=== PATIENT | female | born 1990 | race Two or more races ===

== ENCOUNTER → 2017-01-02 | Outpatient (CLI) | payer OTHER ==
[~2017-01-02] MED LIST: IBUP80TA PO; PERCOCET PO; PRENTAB9 PO
[2017-01-02 09:53] LABS: BASO % 0.3 % (0.0-1.0); EOS # 0.1 K/mm3 (0.0-0.50); EOS % 1.3 % (0.0-3.0); LARGE UNSTAINED CELL # 0.1 K/mm3 (0.0-0.4); LARGE UNSTAINED CELL % 2.2 % (0.0-4.0); LYMPH # 1.7 K/mm3 (1.5-6.5); LYMPH % 30.6 % (24.0-44.0); MEAN CORPUSCULAR HEMOGLOBIN 31.6 pg (27.0-33.0); MEAN CORPUSCULAR VOLUME 87.8 fl (80.0-96.0); MONO # 0.3 K/mm3 (0.0-0.8); MONO % 5.5 % (0.0-5.0); NEUTROPHILS # 3.1 K/mm3 (1.8-7.7); NEUTROPHILS % 60.1 % (36.0-66.0); PLATELET COUNT, AUTOMATED 227 k/mm3 (150-450); RED CELL DISTRIBUTION WIDTH 12.4 % (11.5-14.5); WHITE BLOOD COUNT 5.1 K/mm3 (4.0-10.0)
[2017-01-02 10:14] LABS: ALBUMIN 3.6 GM/DL (3.2-5.2); ALBUMIN/GLOBULIN RATIO 1.13 (1.00-1.93); ALKALINE PHOSPHATASE 53 U/L (45-117); ALT/SGPT 27 U/L (12-78); ANION GAP 7 MEQ/L (8-16); AST/SGOT 16 U/L (15-37); BILIRUBIN,TOTAL 0.8 MG/DL (0.2-1.0); BLOOD UREA NITROGEN 13 MG/DL (7-18); CALCIUM LEVEL 8.2 MG/DL (8.5-10.1); CARBON DIOXIDE LEVEL 29 MEQ/L (21-32); CHLORIDE LEVEL 104 MEQ/L (98-107); CHOLESTEROL LEVEL 156 MG/DL (<200); CREATININE FOR GFR 0.76 MG/DL (0.55-1.02); GLOMERULAR FILTRATION RATE > 60.0 (>60); GLUCOSE, FASTING 87 MG/DL (70-105); POTASSIUM SERUM 4.1 MEQ/L (3.5-5.1); SODIUM LEVEL 140 MEQ/L (136-145); TOTAL PROTEIN 6.8 GM/DL (6.4-8.2); TRIGLYCERIDES LEVEL 66 MG/DL (<150)
== END ==
LOC: M LAB 08:49
PROVIDERS: ATTEND Physician Assistant
DX: Z13.0 Encounter for screening for diseases of the blood and blood-forming organs and certain disorders involving the immune mechanism (principal); R53.83 Other fatigue; Z13.220 Encounter for screening for lipoid disorders

== ENCOUNTER → 2017-01-28 | Outpatient (CLI) | payer OTHER ==
[2017-01-28 11:04] LABS: BASO % 0.3 % (0.0-1.0); EOS # 0.1 K/mm3 (0.0-0.50); EOS % 1.3 % (0.0-3.0); LARGE UNSTAINED CELL # 0.1 K/mm3 (0.0-0.4); LARGE UNSTAINED CELL % 2.1 % (0.0-4.0); LYMPH # 1.7 K/mm3 (1.5-6.5); LYMPH % 28.8 % (24.0-44.0); MEAN CORPUSCULAR HEMOGLOBIN 31.3 pg (27.0-33.0); MEAN CORPUSCULAR HGB CONC 35.6 g/dl (32.0-36.5); MEAN CORPUSCULAR VOLUME 87.9 fl (80.0-96.0); MONO # 0.3 K/mm3 (0.0-0.8); MONO % 5.7 % (0.0-5.0); NEUTROPHILS # 3.5 K/mm3 (1.8-7.7); NEUTROPHILS % 61.8 % (36.0-66.0); PLATELET COUNT, AUTOMATED 247 k/mm3 (150-450); RED CELL DISTRIBUTION WIDTH 12.7 % (11.5-14.5); WHITE BLOOD COUNT 5.6 K/mm3 (4.0-10.0)
[2017-01-28 11:32] LABS: ERYTHROCYTE SEDIMENTATION RATE 15 mm/hr (0-20)
[2017-01-28 11:52] LABS: ALBUMIN 3.7 GM/DL (3.2-5.2); ALBUMIN/GLOBULIN RATIO 1.19 (1.00-1.93); ALKALINE PHOSPHATASE 51 U/L (45-117); ALT/SGPT 29 U/L (12-78); ANION GAP 2 MEQ/L (8-16); AST/SGOT 19 U/L (15-37); BILIRUBIN,TOTAL 0.6 MG/DL (0.2-1.0); BLOOD UREA NITROGEN 13 MG/DL (7-18); CALCIUM LEVEL 8.7 MG/DL (8.5-10.1); CARBON DIOXIDE LEVEL 31 MEQ/L (21-32); CHLORIDE LEVEL 106 MEQ/L (98-107); CREATININE FOR GFR 0.73 MG/DL (0.55-1.02); GLOMERULAR FILTRATION RATE > 60.0 (>60); GLUCOSE, FASTING 91 MG/DL (70-105); POTASSIUM SERUM 4.5 MEQ/L (3.5-5.1); SODIUM LEVEL 139 MEQ/L (136-145); TOTAL PROTEIN 6.8 GM/DL (6.4-8.2)
== END ==
LOC: M LAB 10:11
PROVIDERS: ATTEND Psychiatry & Neurology Neurology
DX: R51 Headache (principal)

== ENCOUNTER → 2017-03-18 | Outpatient (CLI) | payer OTHER ==
[~2017-03-18] MED LIST changes: +AZIT-12 PO; +CYAN25TA PO; +MUCI600T37 PO; +MULT1CHW39 PO; +ONDA4TAB6 PO; +TYLE325T5 PO
== END ==
LOC: M WUC 10:53
PROVIDERS: ATTEND Physician Assistant
DX: R94.6 Abnormal results of thyroid function studies (principal)

== ENCOUNTER 2017-05-30 18:51 | Emergency (ER) | payer OTHER ==
[~2017-05-30] VITALS: Ht 172.7 cm; Wt 124.5 kg
[~2017-05-30 18:51] MED LIST changes: -AZIT-12 PO; -CYAN25TA PO; -MUCI600T37 PO; -MULT1CHW39 PO; -ONDA4TAB6 PO; -TYLE325T5 PO
[2017-05-30] MEDS ORDERED: MULT1CHW39 PO (19:01)
[2017-05-30] MEDS ORDERED: CYAN25TA PO (19:01)
[2017-05-30] MEDS ORDERED: TYLE325T5 PO (19:01)
[2017-05-30] MEDS ORDERED: MUCI600T37 PO (19:57)
[2017-05-30] MEDS ORDERED: ONDA4TAB6 PO (19:57)
[2017-05-30] MEDS ORDERED: AZIT-12 PO (19:57)
[2017-05-30] MEDS ORDERED: ONDANSETRON 4 MG ORAL DISINTEGRATING TAB (S0181) PO ONE (20:00)
[2017-05-30] MEDS ORDERED: AZITHROMYCIN 250 MG TAB PO ONE (20:00)
[2017-05-30 20:03] VITALS: BP 134/67
[2017-05-30] MEDS ORDERED: guaiFENesin ER 600 MG TAB PO SCH (21:00)
== END 2017-05-30 20:16 | disposition home or self-care (01) ==
LOC: M ED 18:51
DX: J20.9 Acute bronchitis, unspecified (principal); Q07.00 Arnold-Chiari syndrome without spina bifida or hydrocephalus

== ENCOUNTER → 2017-06-02 | Outpatient (CLI) | payer OTHER ==
[~2017-06-02] MED LIST changes: +AZIT-12 PO; +CALC250T PO; +CYAN25TA PO; +MUCI600T37 PO; +MULT1CHW39 PO; +ONDA4TAB6 PO; +TYLE325T5 PO
[2017-06-02 12:55] LABS: BASO % 0.2 % (0.0-1.0); EOS # 0.1 10^3/uL (0.0-0.50); EOS % 2.6 % (0.0-3.0); LYMPH # 1.7 10^3/uL (1.5-6.5); MEAN CORPUSCULAR HEMOGLOBIN 30.7 pg (27.0-33.0); MEAN CORPUSCULAR HGB CONC 34.2 g/dl (32.0-36.5); MEAN CORPUSCULAR VOLUME 89.8 fl (80.0-96.0); MONO # 0.3 10^3/uL (0.0-0.8); MONO % 7.3 % (0.0-5.0); NEUTROPHILS # 2.5 10^3/uL (1.8-7.7); NEUTROPHILS % 53.9 % (36.0-66.0); PLATELET COUNT, AUTOMATED 186 10^3/uL (150-450); RED CELL DISTRIBUTION WIDTH 14.2 % (11.5-14.5); WHITE BLOOD COUNT 4.7 10^3/uL (4.0-10.0)
[2017-06-02 13:28] LABS: ALBUMIN 3.7 GM/DL (3.2-5.2); ALBUMIN/GLOBULIN RATIO 1.37 (1.00-1.93); ALKALINE PHOSPHATASE 46 U/L (45-117); ALT/SGPT 43 U/L (12-78); ANION GAP 6 MEQ/L (8-16); AST/SGOT 20 U/L (7-37); BILIRUBIN,TOTAL 1.1 MG/DL (0.2-1.0); BLOOD UREA NITROGEN 5 MG/DL (7-18); CALCIUM LEVEL 8.7 MG/DL (8.5-10.1); CARBON DIOXIDE LEVEL 31 MEQ/L (21-32); CHLORIDE LEVEL 108 MEQ/L (98-107); CREATININE FOR GFR 0.63 MG/DL (0.55-1.02); FERRITIN 54 NG/ML (8-252); GLOMERULAR FILTRATION RATE > 60.0 (>60); GLUCOSE, FASTING 87 MG/DL (70-105); MAGNESIUM LEVEL 1.9 MG/DL (1.8-2.4); PHOSPHORUS LEVEL 2.9 MG/DL (2.5-4.9); POTASSIUM SERUM 4.1 MEQ/L (3.5-5.1); SODIUM LEVEL 145 MEQ/L (136-145); TOTAL PROTEIN 6.4 GM/DL (6.4-8.2)
[2017-06-02 13:29] LABS: VITAMIN B12 LEVEL 649 PG/ML (247-911)
[2017-06-02 14:55] LABS: PRETREATED FOLATE FOR RBCFOL 16.2 NG/ML
== END ==
LOC: M LAB 12:19
PROVIDERS: ATTEND Surgery
DX: K91.2 Postsurgical malabsorption, not elsewhere classified (principal); Z98.84 Bariatric surgery status; E55.9 Vitamin D deficiency, unspecified

== ENCOUNTER 2017-06-13 16:38 | Emergency (ER) | payer OTHER ==
[~2017-06-13] VITALS: Ht 172.7 cm; Wt 121.7 kg
[~2017-06-13 16:38] MED LIST changes: -CALC250T PO
[2017-06-13] MEDS ORDERED: CALC250T PO (16:49)
[2017-06-13 18:59] VITALS: BP 120/69
== END 2017-06-13 19:10 | disposition home or self-care (01) ==
LOC: M ED 16:38
DX: J06.9 Acute upper respiratory infection, unspecified (principal); Q07.00 Arnold-Chiari syndrome without spina bifida or hydrocephalus; Z98.0 Intestinal bypass and anastomosis status; Z86.14 Personal history of Methicillin resistant Staphylococcus aureus infection

== ENCOUNTER 2018-01-28 11:31 | Emergency (ER) | payer SELFPAY, OTHER | END 2018-01-28 14:10 | disposition home or self-care (01) | LOC: M ED 11:31 | DX: S40.022A Contusion of left upper arm, initial encounter (principal); Y04.8XXA Assault by other bodily force, initial encounter; Y07.03 Male partner, perpetrator of maltreatment and neglect; Y92.018 Other place in single-family (private) house as the place of occurrence of the external cause; F17.210 Nicotine dependence, cigarettes, uncomplicated | CPT/HCPCS: 99283 ==

== ENCOUNTER → 2018-04-22 | Outpatient (CLI) | payer MEDICAID ==
[2018-04-22 20:49] LABS: BASO % 0.2 % (0.0-1.0); EOS % 0.7 % (0.0-3.0); HEMATOCRIT 37.1 % (36.0-47.0); HEMOGLOBIN 12.5 g/dl (12.0-15.5); IMMATURE GRANULOCYTE % 0.3 % (0-3.0); LYMPH # 1.7 10^3/uL (1.5-6.5); LYMPH % 29.9 % (24.0-44.0); MEAN CORPUSCULAR HGB CONC 33.7 g/dl (32.0-36.5); MEAN CORPUSCULAR VOLUME 92.1 fl (80.0-96.0); MONO # 0.4 10^3/uL (0.0-0.8); MONO % 7.1 % (0.0-5.0); NEUTROPHILS # 3.6 10^3/uL (1.8-7.7); NEUTROPHILS % 61.8 % (36.0-66.0); PLATELET COUNT, AUTOMATED 204 10^3/uL (150-450); RED BLOOD COUNT 4.03 10^6/uL (4.00-5.40); RED CELL DISTRIBUTION WIDTH 12.3 % (11.5-14.5); WHITE BLOOD COUNT 5.8 10^3/uL (4.0-10.0)
[2018-04-22 21:15] LABS: TOTAL 25(OH) VITAMIN D 23.6 NG/ML (30.0-100.0)
[2018-04-22 21:23] LABS: ERYTHROCYTE SEDIMENTATION RATE 12 mm/hr (0-20)
[2018-04-22 21:25] LABS: ALBUMIN 3.9 GM/DL (3.2-5.2); ALBUMIN/GLOBULIN RATIO 1.22 (1.00-1.93); ALKALINE PHOSPHATASE 67 U/L (45-117); ALT/SGPT 21 U/L (12-78); ANION GAP 6 MEQ/L (8-16); AST/SGOT 11 U/L (7-37); BILIRUBIN,TOTAL 0.6 MG/DL (0.2-1.0); BLOOD UREA NITROGEN 14 MG/DL (7-18); CALCIUM LEVEL 8.4 MG/DL (8.5-10.1); CARBON DIOXIDE LEVEL 29 MEQ/L (21-32); CHLORIDE LEVEL 107 MEQ/L (98-107); CREATININE FOR GFR 0.91 MG/DL (0.55-1.30); GLOMERULAR FILTRATION RATE > 60.0 (>60); GLUCOSE, FASTING 79 MG/DL (70-100); POTASSIUM SERUM 4.4 MEQ/L (3.5-5.1); RHEUMATOID FACTOR QUANT < 10.0 IU/ML (<15.0); SODIUM LEVEL 142 MEQ/L (136-145); TOTAL PROTEIN 7.1 GM/DL (6.4-8.2)
[2018-04-24 15:28] LABS: ANTINUCLEAR ANTIBODIES DIRECT Negative (Negative)
== END ==
LOC: M WUC 15:31
DX: R51 Headache (principal)
CPT/HCPCS: 84443

== ENCOUNTER 2019-04-04 08:57 | Emergency (ER) | payer MEDICAID, OTHER, SELFPAY ==
[~2019-04-04] VITALS: Ht 172.7 cm; Wt 107.8 kg
[~2019-04-04 08:57] MED LIST changes: +CALC250T PO; -CYAN25TA PO; -MULT1CHW39 PO; +MULT200T7 PO; +NAPR-837 PO; +OXYC1TAB23 PO; -PERCOCET PO; +VITA250T50 PO
[2019-04-04] MEDS ORDERED: NAPR-837 PO (09:51)
[2019-04-04] MEDS ORDERED: KETOROLAC 60 MG/2 ML VIAL (J1885) IM ONE (10:00)
[2019-04-04 10:28] VITALS: BP 130/60
== END 2019-04-04 10:30 | disposition home or self-care (01) ==
LOC: M ED 08:57
DX: S16.1XXA Strain of muscle, fascia and tendon at neck level, initial encounter (principal); M62.838 Other muscle spasm; X58.XXXA Exposure to other specified factors, initial encounter; Y92.89 Other specified places as the place of occurrence of the external cause; G93.5 Compression of brain; Z79.899 Other long term (current) drug therapy; Z98.84 Bariatric surgery status
CPT/HCPCS: 96372; 99284; J1885

== ENCOUNTER 2019-07-23 10:20 | Emergency (ER) | payer SELFPAY ==
[~2019-07-23] VITALS: Ht 175.3 cm; Wt 97.7 kg
[2019-07-23] MEDS ORDERED: NON-325T5 PO (10:40)
[2019-07-23] MEDS ORDERED: ACETAMINOPHEN 500 MG TAB PO ONE (11:00)
[2019-07-23 11:26] LABS: BASO % 0.2 % (0.0-1.0); EOS % 0.7 % (0.0-3.0); HEMATOCRIT 39.3 % (36.0-47.0); HEMOGLOBIN 13.2 g/dl (12.0-15.5); LYMPH # 1.2 10^3/uL (1.5-5.0); LYMPH % 20.7 % (24.0-44.0); MEAN CORPUSCULAR HEMOGLOBIN 30.3 pg (27.0-33.0); MEAN CORPUSCULAR HGB CONC 33.6 g/dl (32.0-36.5); MEAN CORPUSCULAR VOLUME 90.1 fl (80.0-96.0); MONO # 0.5 10^3/uL (0.0-0.8); NEUTROPHILS # 4.1 10^3/uL (1.5-8.5); NEUTROPHILS % 70.1 % (36.0-66.0); PLATELET COUNT, AUTOMATED 233 10^3/uL (150-450); RED BLOOD COUNT 4.36 10^6/uL (4.00-5.40); WHITE BLOOD COUNT 5.9 10^3/uL (4.0-10.0)
[2019-07-23 11:56] LABS: ALBUMIN 3.5 GM/DL (3.2-5.2); BILIRUBIN,DIRECT 0.2 MG/DL (0.0-0.2); BILIRUBIN,TOTAL 0.7 MG/DL (0.2-1.0); TOTAL PROTEIN 6.9 GM/DL (6.4-8.2)
[2019-07-23 12:35] VITALS: BP 106/55
--- NOTE | 2019-07-23 13:33 | REP ---
CT abdomen and pelvis without IV or oral contrast: History: Left-sided flank pain. No comparison study. CT findings: Preliminary digital personal banking representative radiograph demonstrates a normal bowel gas pattern. The lung bases are clear. The patient is status post gastric bypass surgery. The liver and the spleen are normal in size homogeneous in texture. No adrenal lesion is seen on either side. No abnormalities noted in the pancreas or in the small contracted appearing gallbladder. There is no evidence of hydronephrosis affecting either kidney. No renal calculus is observed. No retroperitoneal mass or adenopathy is seen. No uterine or ovarian abnormality is seen. Urinary bladder is small and contracted but appears intact. A normal appendix is seen in the right lower quadrant. No abdominal wall defect is seen. Bone window settings show no bony destructive lesion. Impression: Patient status post gastric bypass surgery. No urinary tract calculus seen. No hydronephrosis noted. Normal appendix. No acute abdominal or pelvic abnormality. Electronically Signed by Que Cruz MD 07/23/2019 01:24 P
== END 2019-07-23 12:37 | disposition home or self-care (01) ==
LOC: M ED 10:20
DX: S39.012A Strain of muscle, fascia and tendon of lower back, initial encounter (principal); X58.XXXA Exposure to other specified factors, initial encounter; Y92.098 Other place in other non-institutional residence as the place of occurrence of the external cause; G93.5 Compression of brain; N92.6 Irregular menstruation, unspecified; Z98.84 Bariatric surgery status; Z79.899 Other long term (current) drug therapy

== ENCOUNTER 2019-12-21 22:23 | Emergency (ER) | payer OTHER, SELFPAY ==
[~2019-12-21] VITALS: Ht 175.3 cm; Wt 110.0 kg
[~2019-12-21 22:23] MED LIST changes: +ACET-838 PO
[2019-12-21] MEDS ORDERED: NS 1,000 ML IV ONE (23:00)
[2019-12-21 23:18] LABS: BASO % 0.1 % (0.0-1.0); EOS % 0.3 % (0.0-3.0); HEMATOCRIT 36.6 % (36.0-47.0); HEMOGLOBIN 12.7 g/dl (12.0-15.5); LYMPH # 1.4 10^3/uL (1.5-5.0); LYMPH % 13.8 % (24.0-44.0); MEAN CORPUSCULAR HEMOGLOBIN 30.2 pg (27.0-33.0); MEAN CORPUSCULAR HGB CONC 34.7 g/dl (32.0-36.5); MEAN CORPUSCULAR VOLUME 87.1 fl (80.0-96.0); MONO # 0.6 10^3/uL (0.0-0.8); MONO % 5.5 % (0.0-5.0); NEUTROPHILS # 7.9 10^3/uL (1.5-8.5); PLATELET COUNT, AUTOMATED 192 10^3/uL (150-450); WHITE BLOOD COUNT 9.9 10^3/uL (4.0-10.0)
[2019-12-21 23:35] LABS: ALBUMIN 3.8 GM/DL (3.2-5.2); BILIRUBIN,DIRECT 0.2 MG/DL (0.0-0.2); BILIRUBIN,TOTAL 0.9 MG/DL (0.2-1.0); TOTAL PROTEIN 7.2 GM/DL (6.4-8.2)
[2019-12-21] MEDS ORDERED: ONDANSETRON 4 MG ORAL DISINTEGRATING TAB PO ONE (23:45)
[2019-12-21] MEDS ORDERED: MORPHINE 4 MG/ML 1ML VIAL/SYRINGE (J2270) IV ONE (23:45)
--- NOTE | 2019-12-22 00:12 | REPVR ---
PROCEDURE INFORMATION: Exam: US Abdomen Limited, Right Upper Quadrant Exam date and time: 12/21/2019 11:59 PM Age: 29 years old Clinical indication: Abdominal pain; Additional info: Ruq abd pain R/O gallstones TECHNIQUE: Imaging protocol: Real-time ultrasound of the abdomen with image documentation. Examination was focused on the right upper quadrant. COMPARISON: CT ABD PELVIS W/O CONTRAST 07/23/2019 11:32 AM FINDINGS: Liver: Normal. No masses. Gallbladder: Distended gallbladder containing biliary sludge. Positive sonographic Dinh sign is reported. Common bile duct: Normal. No stones. No dilation. Pancreas: Visualized pancreas is unremarkable. Right kidney: Normal. No mass. No hydronephrosis. IMPRESSION: Distended gallbladder containing biliary sludge. Positive sonographic Dinh sign is reported. No other specific evidence of acute cholecystitis. Electronically signed by: David Bell On 12/22/2019 00:11:50 AM
[2019-12-22] MEDS ORDERED: PEPC1TAB5 PO (01:20)
[2019-12-22] MEDS ORDERED: ONDA4TAB6 PO (01:20)
[2019-12-22] MEDS ORDERED: FAMOTIDINE 20 MG TAB PO ONE (01:45)
[2019-12-22 01:53] VITALS: BP 128/70
--- NOTE | 2019-12-22 10:21 | REP ---
ABDOMINAL SERIES: Supine and erect views of the abdomen demonstrate no evidence of free intraperitoneal air. Mild air is seen throughout the colon. There are a few mildly dilated small bowel loops in the mid abdomen which are nonspecific. This may represent mild ileus. Multiple phleboliths are seen in the pelvis. There are mild degenerative changes of the spine. An accompanying PA view of the chest demonstrates no acute infiltrate. Heart and mediastinum are within normal limits. IMPRESSION: No free air. Nonspecific bowel gas pattern. A few mildly dilated small bowel loops in the mid abdomen may represent a mild ileus. No free air. Electronically Signed by Mukesh Guillaume MD 12/22/2019 07:39 P
== END 2019-12-22 01:58 | disposition home or self-care (01) ==
LOC: M ED 22:23
DX: K80.50 Calculus of bile duct without cholangitis or cholecystitis without obstruction (principal); K83.8 Other specified diseases of biliary tract; Q07.00 Arnold-Chiari syndrome without spina bifida or hydrocephalus; Z98.84 Bariatric surgery status
CPT/HCPCS: 74021; 76705; 80047; 80076; 81001; 83690; 84702; 85025; 87086; 96361; 96374; 99284; J2270; Q0162

== ENCOUNTER 2020-01-27 12:22 | Emergency (ER) | payer OTHER ==
[~2020-01-27] VITALS: Ht 172.7 cm; Wt 107.9 kg
[~2020-01-27 12:22] MED LIST changes: -ACET-838 PO; +NON-325T5 PO; +PEPC1TAB5 PO
[2020-01-27] MEDS ORDERED: MULTCAP PO (12:29)
[2020-01-27] MEDS ORDERED: CYCL5TAB PO (13:56)
[2020-01-27 14:15] VITALS: BP 118/70
--- NOTE | 2020-01-28 07:45 | REP ---
REASON: Pain in the neck. COMPARISON: 08/10/2013 Vertebral body height and alignment is within normal limits. The disc spaces are symmetric and relatively well maintained and essentially unchanged. The facet joints are well aligned bilaterally. There is no evidence of an acute cervical spine fracture. There is no abnormal paraspinal soft tissue swelling. IMPRESSION: Essentially unchanged, unremarkable CT examination of the cervical spine. Electronically Signed by Dmitry Wang DO 01/29/2020 08:27 A
== END 2020-01-27 14:13 | disposition home or self-care (01) ==
LOC: M ED 12:22
DX: S13.4XXA Sprain of ligaments of cervical spine, initial encounter (principal); V40.5XXA Car driver injured in collision with pedestrian or animal in traffic accident, initial encounter; Y92.9 Unspecified place or not applicable; Y93.9 Activity, unspecified; Y99.9 Unspecified external cause status

== ENCOUNTER 2020-08-11 16:05 | Emergency (ER) | payer OTHER ==
[~2020-08-11] VITALS: Ht 172.7 cm; Wt 103.4 kg
[~2020-08-11 16:05] MED LIST changes: +ACET-838 PO; +CYCL5TAB PO; +MULTCAP PO; -NON-325T5 PO
[2020-08-11 16:06] VITALS: BP 134/64
== END 2020-08-11 17:21 | disposition home or self-care (01) ==
LOC: M ED 16:05
DX: J06.9 Acute upper respiratory infection, unspecified (principal); B34.9 Viral infection, unspecified; R43.9 Unspecified disturbances of smell and taste; Z20.822 Contact with and (suspected) exposure to COVID-19
CPT/HCPCS: 99282; U0003

== ENCOUNTER → 2021-03-04 | Outpatient (REF) | payer OTHER ==
[~2021-03-04] MED LIST changes: -ACET-838 PO; +ACET32TAB PO; -VITA250T50 PO; +VITA250T7 PO
[2021-03-04 18:23] LABS: APPEARANCE, URINE CLEAR (CLEAR); BACTERIA, URINE AUTO NEGATIVE (NEGATIVE); BILIRUBIN, URINE AUTO NEGATIVE (NEGATIVE); BLOOD, URINE BLOOD NEGATIVE (NEGATIVE); COLOR, URINE YELLOW (YELLOW); GLUCOSE, URINE (UA) AUTO NEGATIVE (NEGATIVE); KETONE, URINE AUTO NEGATIVE (NEGATIVE); LEUKOCYTE ESTERASE, URINE AUTO NEGATIVE (NEGATIVE); NITRITE, URINE AUTO NEGATIVE (NEGATIVE); PROTEIN, URINE AUTO NEGATIVE (NEGATIVE); RBC, URINE AUTO 1 /HPF (0-3); SPECIFIC GRAVITY URINE AUTO 1.008 (1.002-1.035); SQUAMOUS EPITHELIAL CELL UR AU 0 /HPF (0-6); WBC, URINE AUTO 0 /HPF (0-3)
[2021-03-04 19:55] LABS: GC DNA AMPLIFICATION NEGATIVE (NEGATIVE)
== END ==
LOC: M LAB REF 16:58
PROVIDERS: ATTEND Physician Assistant Medical
DX: R30.0 Dysuria (principal)

== ENCOUNTER → 2021-03-18 | Outpatient (REF) | payer OTHER | LOC: M LAB REF 16:18 | PROVIDERS: ATTEND Physician Assistant | DX: J02.9 Acute pharyngitis, unspecified (principal) ==

== ENCOUNTER 2021-03-19 12:59 | Emergency (ER) | payer OTHER ==
[~2021-03-19] VITALS: Ht 172.7 cm; Wt 102.2 kg
[2021-03-19] MEDS ORDERED: NS 1,000 ML IV ONE (18:00)
[2021-03-19] MEDS ORDERED: ACETAMINOPHEN 325 MG TAB PO ONE (18:15)
[2021-03-19 19:04] LABS: BASO % 0.1 % (0.0-1.0); HEMATOCRIT 34.8 % (36.0-47.0); HEMOGLOBIN 11.6 g/dl (12.0-15.5); LYMPH # 1.1 10^3/uL (1.5-5.0); MEAN CORPUSCULAR HEMOGLOBIN 27.8 pg (27.0-33.0); MEAN CORPUSCULAR HGB CONC 33.3 g/dl (32.0-36.5); MEAN CORPUSCULAR VOLUME 83.5 fl (80.0-96.0); MONO # 0.6 10^3/uL (0.0-0.8); MONO % 8.7 % (2.0-8.0); NEUTROPHILS # 5.5 10^3/uL (1.5-8.5); NEUTROPHILS % 75.9 % (36.0-66.0); PLATELET COUNT, AUTOMATED 152 10^3/uL (150-450); RED BLOOD COUNT 4.17 10^6/uL (4.00-5.40); WHITE BLOOD COUNT 7.2 10^3/uL (4.0-10.0)
[2021-03-19 19:27] LABS: RSV AMPLIFICATION NEGATIVE (NEGATIVE)
[2021-03-19 19:39] LABS: ALBUMIN 3.4 GM/DL (3.2-5.2); ALT/SGPT 17 U/L (12-78); BILIRUBIN,TOTAL 0.9 MG/DL (0.2-1.0); BLOOD UREA NITROGEN 9 MG/DL (7-18); CALCIUM LEVEL 8.8 MG/DL (8.5-10.1); CARBON DIOXIDE LEVEL 24 MEQ/L (21-32); CHLORIDE LEVEL 104 MEQ/L (98-107); CREATININE FOR GFR 0.66 MG/DL (0.55-1.30); GLOMERULAR FILTRATION RATE > 60.0 (>60); GLUCOSE, FASTING 83 MG/DL (70-100); SODIUM LEVEL 137 MEQ/L (136-145); TOTAL PROTEIN 7.5 GM/DL (6.4-8.2)
[2021-03-19 19:40] LABS: MONO REFLEX EBV COMP NEGATIVE (NEGATIVE)
[2021-03-19 20:13] VITALS: BP 144/64
[2021-03-21 15:09] LABS: EBV AB TO NUCLEAR ANTIGEN 91.4 U/mL (0.0-17.9); EBV VIRAL CAPSID AG IgM <36.0 U/mL (0.0-35.9)
== END 2021-03-19 20:55 | disposition home or self-care (01) ==
LOC: M ED 12:59
DX: J02.9 Acute pharyngitis, unspecified (principal); B34.8 Other viral infections of unspecified site; Z98.84 Bariatric surgery status

== ENCOUNTER → 2021-10-23 | Outpatient (REF) | payer OTHER ==
[2021-10-23 16:31] LABS: MONO SCRN NEGATIVE (NEGATIVE)
== END ==
LOC: M LAB REF 16:05
PROVIDERS: ATTEND Physician Assistant
DX: R50.9 Fever, unspecified (principal); R05.9 Cough, unspecified; R53.83 Other fatigue

== ENCOUNTER → 2022-01-17 | Outpatient (REF) | payer OTHER | LOC: M LAB REF 16:44 | PROVIDERS: ATTEND Physician Assistant | DX: R50.9 Fever, unspecified (principal) ==

== ENCOUNTER → 2022-03-25 | Outpatient (REF) | payer OTHER | LOC: M LAB REF 12:16 | PROVIDERS: ATTEND Physician Assistant Medical | DX: R50.9 Fever, unspecified (principal) ==

== ENCOUNTER → 2022-05-21 | Outpatient (REF) | payer OTHER | LOC: M WUC 16:31 | PROVIDERS: ATTEND Physician Assistant | DX: J06.9 Acute upper respiratory infection, unspecified (principal) ==

== ENCOUNTER → 2022-08-05 | Outpatient (REF) | payer OTHER | LOC: M LAB REF 21:02 | PROVIDERS: ATTEND Physician Assistant Medical | DX: B34.9 Viral infection, unspecified (principal) ==

== ENCOUNTER → 2023-07-01 | Outpatient (CLI) | payer OTHER | LOC: M PLAIMG 06:39 | PROVIDERS: ATTEND Student in an Organized Health Care Education/Training Program | DX: S50.871A Other superficial bite of right forearm, initial encounter (principal); M79.631 Pain in right forearm; W54.0XXA Bitten by dog, initial encounter; Y92.009 Unspecified place in unspecified non-institutional (private) residence as the place of occurrence of the external cause ==

== ENCOUNTER → 2023-08-10 | Outpatient (CLI) | payer OTHER ==
[2023-08-10 14:47] LABS: BASO % 0.3 % (0.0-1.0); EOS # 0.1 10^3/uL (0.0-0.5); EOS % 1.5 % (0.0-3.0); HEMATOCRIT 30.2 % (36.0-47.0); HEMOGLOBIN 9.2 g/dl (12.0-15.5); LYMPH # 1.4 10^3/uL (1.5-5.0); LYMPH % 42.3 % (24.0-44.0); MEAN CORPUSCULAR HEMOGLOBIN 23.7 pg (27.0-33.0); MEAN CORPUSCULAR HGB CONC 30.5 g/dl (32.0-36.5); MEAN CORPUSCULAR VOLUME 77.8 fl (80.0-96.0); MONO # 0.3 10^3/uL (0.0-0.8); MONO % 8.9 % (2.0-8.0); NEUTROPHILS # 1.5 10^3/uL (1.5-8.5); PLATELET COUNT, AUTOMATED 211 10^3/uL (150-450); RED BLOOD COUNT 3.88 10^6/uL (4.00-5.40); WHITE BLOOD COUNT 3.3 10^3/uL (4.0-10.0)
== END ==
LOC: M PLALAB 09:29
PROVIDERS: ATTEND Student in an Organized Health Care Education/Training Program
DX: M79.631 Pain in right forearm (principal)

== ENCOUNTER → 2023-08-11 | Outpatient (CLI) | payer OTHER | LOC: M RAD 07:39 | PROVIDERS: ATTEND Student in an Organized Health Care Education/Training Program | DX: M79.631 Pain in right forearm (principal); S50.871D Other superficial bite of right forearm, subsequent encounter | CPT/HCPCS: 78315; A9503 ==

== ENCOUNTER → 2024-02-11 | Outpatient (REF) | payer OTHER ==
[~2024-02-11] MED LIST changes: +ONDA-282 PO; -ONDA4TAB6 PO
== END ==
LOC: M LAB REF 20:47
PROVIDERS: ATTEND Physician Assistant Medical
DX: J02.9 Acute pharyngitis, unspecified (principal)

== ENCOUNTER → 2024-04-08 | Outpatient (REF) | payer OTHER | LOC: M LAB REF 16:17 | PROVIDERS: ATTEND Physician Assistant | DX: J06.9 Acute upper respiratory infection, unspecified (principal) ==

== ENCOUNTER → 2024-07-26 | Outpatient (REF) | payer OTHER ==
[~2024-07-26] MED LIST changes: -CYCL5TAB PO; +CYCL5TAB4 PO; -MULT200T7 PO; +MULT200T9 PO
== END ==
LOC: M LAB REF 12:03
PROVIDERS: ATTEND Nurse Practitioner Family
DX: R30.0 Dysuria (principal)

== ENCOUNTER → 2025-03-01 | Outpatient (CLI) | payer OTHER | LOC: M WUC 13:32 | PROVIDERS: ATTEND Nurse Practitioner Family | DX: M79.671 Pain in right foot (principal) ==